=== PATIENT | female | born 1970 | race Caucasian/White ===

== ENCOUNTER 2019-12-24 12:39 | Outpatient (CLI) | payer OTHER, SELFPAY ==
[2019-12-24 15:18] LABS: Basophils # 0.1 10^3/uL (0.0-0.1); Basophils % 0.5 %; Eosinophils # 0.2 10^3/uL (0.0-0.8); Eosinophils % 1.7 %; Hematocrit 51.4 % (37.0-47.0); Hemoglobin 16.6 g/dL (11.5-15.3); Lymphocytes # 3.1 10^3/uL (0.8-4.8); Lymphocytes % 31.4 %; Mean Corpuscular HGB Conc 32.3 g/dL (30.0-36.0); Mean Corpuscular Hemoglobin 31.6 pg (28.0-34.0); Mean Corpuscular Volume 97.7 fL (81-99); Mean Platelet Volume 9.6 fL (7.4-10.4); Monocytes # 0.8 10^3/uL (0.2-0.9); Monocytes % 7.7 %; Neutrophils # 5.7 10^3/uL (1.8-7.7); Neutrophils % 58.4 %; Nucleated Red Blood Cells % 0 %; Platelet Count 304 10^3/cmm (130-400); Red Blood Count 5.26 10^6/uL (4.1-5.3); Red Cell Distribution Width 13.2 % (12.1-15.1); White Blood Count 9.8 10^3/uL (4.0-10.0)
[2019-12-24 16:00] LABS: Lactate Dehydrogenase 189 U/L (135-214)
[2019-12-24 17:06] LABS: Alanine Aminotransferase 35 U/L (0-33); Albumin Level 4.7 g/dL (3.5-5.2); Alkaline Phosphatase 107 IU/L (35-105); Anion Gap 22.6 (5-19); Aspartate Amino Transferase 24 U/L (0-32); Blood Urea Nitrogen 10 mg/dL (6-20); Calcium 10.1 mg/dL (8.5-10.5); Carbon Dioxide 24 mmol/L (22-29); Chloride 99 mmol/L (98-107); Globulin 2.7 g/dL (1.3-4.6); Glomerular Filtration Rate 76.2 mL/min (90-130); Glucose 90 mg/dL (65-115); Osmolality Calculated 288 mOsm/kg (285-295); Potassium 4.6 mmol/L (3.5-5.1); Sodium 141 mmol/L (136-145); Total Bilirubin 0.3 mg/dL (0.15-1.2); Total Protein 7.4 g/dL (6.6-8.7)
--- NOTE | 2019-12-24 17:36 | ONC CON_ITS ---
Dr. Sloan New Patient Note Patient: Uzma Martell Unit #: [id number]: 1970 Dicatated By: Ismael Sloan M.D.Date of Visit: Dec 24, 2019 Onc MED New Patient/Consult Referring Physician: Chief Complaint: Polycythemia. History of Present Illness: This is a 49 year-old woman with elevated hemoglobin/hematocrit levels. She has hyperlipidemia and cardiomyopathy. She had a scheduled visit with Dr. Lewis on 12/14/2019. Her laboratory studies at that time included a CBC which showed mildly elevated hemoglobin and hematocrit levels at 17.3 g and 51% respectively. The red cell indices were normal. The white blood cell count was borderline high at 10,300. The platelet count was normal at 301,000. I do not have any prior studies available for comparison. She indicates that the blood counts were a little high when checked 2 years ago. She complains that her energy is pretty low, and she says she does fall asleep very easily during the daytime. She is still working and doing her normal activities. ECOG score is 0. She has good appetite. She is watching what she eats, and her weight has come down 5 or 6 pounds. She has not had fever or night sweats, but she does feel hot pretty often. She sometimes has shortness of breath, but her breathing overall is much better since she has been on Lasix. She has a smoker's cough. She recently had some pressure in her chest, she otherwise does not complain of chest pain. She does have cardiomyopathy, diagnosed by cardiac catheterization study. She had a recent episode of nausea and dizziness which lasted several hours. She has had acid reflux, but is pretty well managed with medication. She has no complaints with bowel or bladder function. She has had pain in her upper back at times. She has no other joint or bone pain. She recently has had headache, but she thinks that may be related to her eyes. She has no numbness/paresthesia or other focal neurologic symptoms. She has had anxiety/depression following the of her daughter in a motor vehicle accident 2 years ago, but it is getting better. Past Medical History: Her medical history includes anxiety, cardiomyopathhy, depression, gastroesophageal reflux disease, hyperlipidemia, hypertension, vitamin B12 deficiency, and vitamin D deficiency. Past Surgical History: Her surgical/procedural history includes appendectomy, bladder repair, cardiac catheterization, cholecystectomy, thyroid biopsy, and vaginal hysterectomy without oophorectomy. Medications: Aspirin 1 Tablet (of 81 mg) Tablet, enteric coated Oral daily, Atorvastatin Calcium 1 Tablet (of 80 mg) Oral at bedtime, B-12 1 Injectable Transdermal q 30 days, Bijuva 1 Capsule (of 1-100 mg) Oral daily, Chantix 1 Tablet (of 1 mg) Oral b.i.d., Escitalopram Oxalate 1 Tablet (of 20 mg) Oral at bedtime, Furosemide 1 Tablet (of 20 mg) Oral daily, Lovaza 2 Capsule (of 1 g) Oral b.i.d., Metoprolol Tartrate 1 Tablet (of 25 mg) Oral b.i.d., Potassium Chloride ER 1 Tablet (of 20 meq) Tablet, controlled release Oral daily, Protonix 1 Tablet (of 20 mg) Tablet, enteric coated Oral b.i.d., Vitamin D3 1 Capsule (of 00930 Units) Oral q 7 days Allergies: Morphine Sulfate Social History: Ms. Martell is . 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 She has a history of smoking 1 pack of cigarettes daily for 34 years. She is trying to quit. She has just rare alcohol use. Family History: Both parents are still living, but at age 77 and mother at age 74. He has coronary artery disease and diabetes. Her mother has hypertension and migraines. She has 2 sisters, one of whom has had pulmonary embolism. The other has hyperthyroidism and she also has a pacemaker. Her paternal grandfather had lung cancer. Review Of Symptoms: Constitutional - Her energy level is pretty low, but she works full-time and she has normal activity. She does tend to fall asleep easily during the daytime. Her appetite is good. She has had intentional weight loss of about 6 pounds. No fever or night sweats. She has frequent hot flashes. ECOG score is 0, Eyes - She reports some decline in visual acuity, ENMT - No sinus congestion/drainage. No mouth sores. No sore throat or difficulty swallowing, Endocrine - She has enlarged thyroid. It is being followed by Dr. Gregory, Hematologic/Lymphatic - No abnormal bruising or bleeding, Respiratory - She has occasional shortness of breath with activity. She has a chronic smoker's cough. No pleuritic pain or hemoptysis, Cardiovascular - No angina pain. No palpitations, Gastrointestinal - No nausea or vomiting. Her heartburn is adequately managed with pantoprazole. No diarrhea or constipation. No blood in the stool or black stools, Genitourinary (F) - No dysuria or hematuria. No urinary frequency. No urgency or incontinence, Musculoskeletal - She has some upper back pain, Integumentary - No skin complications, Neurologic - She has occasional headaches. She does report a recent episode of dizziness/vertigo that lasted 2-3 hours. No dizziness present. No numbness or tingling. No other focal neurologic symptoms, Psychiatric - She has some anxiety and depression, which is adequately managed with escitalopram. No insomnia. Vital Signs: Performed on Dec 24, 2019 13:50: 0, 29.57, 1.93 sq.m, 66.00 in, 96 %, 76 /min, 18 /min, 110/74 mm(hg), 99.6 F (HIGH), and 183.2 lbs (HIGH). Physical Examination: Constitutional - She appears to be in good general health, Eyes - Sclerae nonicteric. Conjunctivae clear, ENMT - No lesions noted in the oral cavity, Hematologic/Lymphatic - No cervical, clavicular, or axillary adenopathy, Respiratory - Lungs are clear with slightly diminished air movement bilaterally, Cardiovascular - Heart rhythm is regular. There is no murmur, gallop, or rub noted, Abdomen - Soft and non-tender. Liver and spleen are not enlarged. There is no abdominal mass or ascites noted and there is no inguinal adenopathy, Extremities - No edema. Pedal pulses are palpable bilaterally, Integumentary - No rashes. No suspicious skin lesions noted, Neurologic - No focal neurologic deficits noted. Impression: 1. Patient with elevated hemoglobin/hematocrit levels. I suspect this is secondary polycythemia in association with smoking. Obstructive sleep apnea also may be a contributing factor. Alternatively, this may just be due to decreased plasma volume ( stress erythrocytosis ), but that cannot be determined with certainty. Polycythemia rubra vera is unlikely, but not excluded. 2. She does have fatigue and excessive daytime somnolence. Her other medical illnesses include: 3. Hyperlipidemia. 4. Cardiomyopathy. 5. GERD. 6. Vitamin D deficiency. 7. Vitamin B12 deficiency. 8. Anxiety/depression. Plan: The laboratory findings and clinical implications were reviewed with the patient. She will have additional laboratory studies today to include CBC, CMP, LDH level, erythropoietin level, and a JAK2 gene mutation study with reflex to exon 12. She also will be scheduled for a sleep study. She will have further evaluation as indicated. Signed By: Ismael Sloan M.D. <<Signature on File>>
[2019-12-25 14:41] LABS: Erythropoietin 8.3 mIU/mL (2.6-18.5)
== END 2019-12-24 12:40 | disposition home or self-care (01) ==
LOC: ONCMED 12:52
PROVIDERS: PCP Nurse Practitioner Family; Referring Provider Family Medicine; Visit Provider Internal Medicine Medical Oncology
DX: D75.1 Secondary polycythemia (principal); F17.210 Nicotine dependence, cigarettes, uncomplicated; R53.83 Other fatigue; R40.0 Somnolence; E78.5 Hyperlipidemia, unspecified; I42.9 Cardiomyopathy, unspecified; K21.9 Gastro-esophageal reflux disease without esophagitis; E55.9 Vitamin D deficiency, unspecified; E53.8 Deficiency of other specified B group vitamins; F41.8 Other specified anxiety disorders
CPT/HCPCS: 36415; 80053; 81270; 82668; 83615; 85025; 99203; 99204; 99214

== ENCOUNTER 2021-01-31 13:21 | Outpatient (CLI) | payer OTHER, SELFPAY ==
--- NOTE | 2021-01-31 13:25 | MM_ITS ---
WS: [id number] SCREENING DIGITAL MAMMOGRAM WITH CAD HISTORY: SCREENING COMPARISON: 02/12/2018 and 2015 Bilateral CC and MLO views submitted. Computer aided detection analyzed. Breast composition: There are scattered areas of fibroglandular density. No suspicious masses, microc alcifications or architectural distortion. MM/[place] [id number] IMPRESSION: BI-RADS: 1-Negative FOLLOW UP: 1 Year Follow-up
== END 2021-01-31 13:22 | disposition home or self-care (01) ==
LOC: RADSHAW 13:24
PROVIDERS: PCP Nurse Practitioner Family; Visit Provider Nurse Practitioner Family
DX: Z12.31 Encounter for screening mammogram for malignant neoplasm of breast (principal)
CPT/HCPCS: 77067

== ENCOUNTER 2021-04-03 12:43 | Outpatient (CLI) | payer OTHER, SELFPAY ==
--- NOTE | 2021-04-03 12:47 | XR_ITS ---
WS: [id number] THORACIC SPINE TECHNIQUE: 3 views of the thoracic spine CLINICAL INFORMATION: THORACIC COMPARISON: None. FINDINGS: Normal thoracic alignment. Mild thoracic kyphosis. Mild disc space narrowing mid thoracic spine. No a cute fractures. Prior cholecystectomy. Visualized lungs are well aerated. XR/XR thoracic spine 3V* [id number] IMPRESSION: No acute thoracic spine findings. Mild spondylitic changes.
--- NOTE | 2021-04-03 12:47 | XR_ITS ---
WS: [id number] CERVICAL SPINE TECHNIQUE: 3 views of the cervical spine CLINICAL INFORMATION: CERVICALGIA COMPARISON: None. FINDINGS: Straightening of the normal cervical lordosis. Normal C1-C2 articulation. Mild spondylitic changes. N ormal prevertebral soft tissues. Mild facet arthropathy. XR/XR cervical spine 3V* [id number] IMPRESSION: 1. Straightening of the normal cervical lordosis with mild spondylitic changes . 2. Normal prevertebral soft tissues. 3. Normal dens.
== END 2021-04-03 12:44 | disposition home or self-care (01) ==
PROVIDERS: PCP Nurse Practitioner Family; Visit Provider Nurse Practitioner Family
DX: M54.2 Cervicalgia (principal); M54.6 Pain in thoracic spine
CPT/HCPCS: 72040; 72072

== ENCOUNTER → 2023-02-19 11:50 | Outpatient (BNVA) | payer OTHER, SELFPAY | PROVIDERS: PCP Nurse Practitioner Family; Visit Provider Internal Medicine Rheumatology | DX: Z79.899 Other long term (current) drug therapy (principal); M19.90 Unspecified osteoarthritis, unspecified site; Z11.59 Encounter for screening for other viral diseases; Z11.1 Encounter for screening for respiratory tuberculosis; M45.6 Ankylosing spondylitis lumbar region; M46.90 Unspecified inflammatory spondylopathy, site unspecified; M25.50 Pain in unspecified joint | CPT/HCPCS: 36415; 80076; 82565; 85025; 85651; 86140; 86200; 86431; 86480; 86704; 86803; 86812; 87340 ==

== ENCOUNTER 2023-05-23 15:30 | Outpatient (CLI) | payer OTHER, SELFPAY ==
--- NOTE | 2023-05-23 15:30 | MM_ITS ---
WS: [id number] SCREENING DIGITAL TOMOSYNTHESIS MAMMOGRAM WITH CAD HISTORY: SCREENING COMPARISON: 01/31/2021, 02/12/2018 Bilateral CC and MLO with tomosynthesis views submitted. Synthetic mammography reviewed. Computer aid ed detection analyzed. Breast composition: There are scattered areas of fibroglandular density. No suspicious masses, microc alcifications or architectural distortion. IMPRESSION: MM/[place] [id number] BI-RADS: 1-Negative FOLLOW UP: 1 Year Follow-up
== END 2023-05-23 15:31 | disposition home or self-care (01) ==
LOC: MOBLMAM 15:32
PROVIDERS: PCP Nurse Practitioner Family; Visit Provider Nurse Practitioner Family
DX: Z12.31 Encounter for screening mammogram for malignant neoplasm of breast (principal)
CPT/HCPCS: 77063; 77067

== ENCOUNTER → 2023-07-25 10:45 | Outpatient (BNVA) | payer OTHER, SELFPAY | PROVIDERS: PCP Nurse Practitioner Family; Visit Provider Internal Medicine Rheumatology | DX: M46.90 Unspecified inflammatory spondylopathy, site unspecified (principal); M47.894 Other spondylosis, thoracic region; M47.896 Other spondylosis, lumbar region; M47.892 Other spondylosis, cervical region | CPT/HCPCS: 72040; 72072; 72100; 72202 ==

== ENCOUNTER 2024-05-26 11:20 | Outpatient (CLI) | payer OTHER, SELFPAY ==
--- NOTE | 2024-05-26 11:20 | MM_ITS ---
WS: [id number] BILATERAL 3D TOMOSYNTHESIS DIGITAL SCREENING MAMMOGRAPHY WITH CAD CLINICAL INFORMATION: SCREENING HISTORY: Screening mammogram. No current complaints. COMPARISON: 2022 TECHNIQUE: Bilateral CC and MLO views. FINDINGS: Scattered fibroglandular densities bilaterally. No suspicious focal mass, asymmetry, calcifications, or architectural distortion. No evidence of malignancy. MM/MM scr BI tomosynthesis [id number] IMPRESSION: DENSITY: There are scattered areas of fibroglandular density. BI-RADS: 1 - Negative. FOLLOW UP: 1 Year Follow-up Recommend return to annual screening mammography.
== END 2024-05-26 11:49 | disposition home or self-care (01) ==
PROVIDERS: PCP Nurse Practitioner Family; Visit Provider Nurse Practitioner Family
DX: Z12.31 Encounter for screening mammogram for malignant neoplasm of breast (principal); R92.323 Mammographic fibroglandular density, bilateral breasts
CPT/HCPCS: 77063; 77067

== ENCOUNTER 2025-04-09 12:25 | Outpatient (CLI) | payer BC, SELFPAY ==
--- NOTE | 2025-04-09 13:00 | XR_ITS ---
WS: [id number] DEXA (DUAL ENERGY X-RAY ABSORPTIOMETRY) Bone mineral density was performed using a [employer] machine. HISTORY: M81.0 - Age-related osteoporosis without current patholog... COMPARISON: None available. Lumbar spine BMD (L1-L4): 1.058 g/cm2 T score: -1.0 Z score: -0.8 Total hip BMD: Left: 1.111 g/cm2. T score: 0.8 Z score: 1.1 Right: 1.092 g/cm2. T score: 0.7 Z score: 0.9 10 year probability of a major osteoporotic fracture is 5.3%. XR/XR DEXA axial skeleton* [id number] IMPRESSION: NORMAL BONE MINERAL DENSITY based upon the WHO classification for females.
== END 2025-04-09 12:26 | disposition home or self-care (01) ==
PROVIDERS: PCP Nurse Practitioner Family; Visit Provider Internal Medicine Rheumatology
DX: Z13.820 Encounter for screening for osteoporosis (principal); M81.0 Age-related osteoporosis without current pathological fracture
CPT/HCPCS: 77080